=== PATIENT | female | born 1985 | race Caucasian/White ===

== ENCOUNTER 2017-01-30 08:49 | Emergency (ER) | payer BC ==
[2017-01-30 09:29] LABS: ABSOLUTE LYMPHOCYTES (AUTO) 0.5 10^3/uL (0.5-4.7); ABSOLUTE MONOCYTES (AUTO) 0.6 10^3/uL (0.1-1.4); ABSOLUTE NEUT (AUTO) 8.1 10^3/uL (1.7-8.2); BASOPHILS % (AUTO) 0.2 % (0-2); EOSINOPHILS % (AUTO) 0.3 % (0-6); HEMATOCRIT 38.9 % (36.0-47.0); HEMOGLOBIN 13.8 g/dL (12.0-15.5); HGB HCT DIFFERENCE 2.5; LYMPHOCYTES % (AUTO) 5.4 % (13-45); MEAN CORPUSCULAR HEMOGLOBIN 32.8 pg (27.0-33.4); MEAN CORPUSCULAR HGB CONC 35.4 g/dL (32.0-36.0); MEAN CORPUSCULAR VOLUME 93 fl (80-97); MONOCYTES % (AUTO) 6.7 % (3-13); RED CELL DISTRIBUTION WIDTH 13.4 % (11.5-14.0); SEGMENTED NEUTROPHILS % (AUTO) 87.4 % (42-78); WHITE BLOOD COUNT 9.2 10^3/uL (4.0-10.5)
[2017-01-30] MEDS ORDERED: NORMAL SALINE 1000 ML 1,000 ML IV ONE (09:35)
[2017-01-30 09:43] LABS: ALANINE AMINOTRANSFERASE 26 U/L (9-52); ALBUMIN 3.7 g/dL (3.5-5.0); ALKALINE PHOSPHATASE 141 U/L (38-126); ANION GAP 10 (5-19); ASPARTATE AMINO TRANSFERASE 31 U/L (14-36); BILIRUBIN,TOTAL 0.8 mg/dL (0.2-1.3); BLOOD UREA NITROGEN 11 mg/dL (7-20); CALCIUM 9.4 mg/dL (8.4-10.2); CARBON DIOXIDE 25 mmol/L (22-30); CHLORIDE 102 mmol/L (98-107); CREATININE RESULT 0.52 mg/dL (0.52-1.25); GLUCOSE 99 mg/dL (75-110); LIPASE 48.5 U/L (23-300); POTASSIUM 3.6 mmol/L (3.6-5.0); SODIUM 137.1 mmol/L (137-145)
--- NOTE | 2017-01-30 10:49 | ER Document Report ---
ED GI/ - General Chief Complaint: Nausea/Vomiting Stated Complaint: NAUSEA Notes: Patient is a 31-year-old female who presents emergency Department complaining of vomiting for the past 3 days. Patient states she is 30 weeks , went to see her ROBOTICS SYSTEMS ENGINEER Dr. Boyd yesterday. She was started on a [place] for intermittent fevers, nasal drainage and sinus pressure. Based on her evaluation at that time admits that if she continued to vomit that she should come to the emergency department for IV fluids. Patient states that she' s been throwing up for the past 3 days. She's been eating bland foods. States that she was standing up on Thursday, was able to keep things down yesterday. States that last evening and this morning she has had 5 episodes of emesis. Denies any hematemesis or hematochezia. She admits to occasional this bowel movements but denies any constipation. Denies any dizziness or lightheadedness any chest pain. Denies any urinary symptoms. Any vaginal bleeding. TRAVEL OUTSIDE OF THE [place] IN LAST 30 DAYS: No - HPI heart tones (bpm): 146 - Related Data Allergies/Adverse Reactions: cephalexin monohydrate [From Keflex] Allergy (Verified 01/30/17 08:58) GI upset Past Medical History - Social History Smoking Status: Never Smoker Chew tobacco use (# tins/day): No Frequency of alcohol use: None Drug Abuse: None Family History: Reviewed & Not Pertinent Patient has suicidal ideation: No Patient has homicidal ideation: No Renal/ Medical History: Denies: Hx Peritoneal Dialysis Past Surgical History: Reports: Hx Gynecologic Surgery - d&c times 2 for miscarriages. Denies: Hx Abdominal Surgery, Hx Appendectomy, Hx Cholecystectomy - Immunizations Immunizations up to date: Yes Hx Diphtheria, Pertussis, Tetanus Vaccination: Yes Review of Systems - Review of Systems Constitutional: See HPI EENT: See HPI Cardiovascular: No symptoms reported Respiratory: No symptoms reported Gastrointestinal: See HPI Genitourinary: No symptoms reported Female Genitourinary: No symptoms reported Musculoskeletal: No symptoms reported -: Yes All other systems reviewed and negative Physical Exam - Vital signs Vitals: Temp Pulse Resp BP Pulse Ox 98.7 F 111 H 16 120/68 98 01/30/17 08:56 01/30/17 08:56 01/30/17 08:56 01/30/17 08:56 01/30/17 08:56 - Notes Notes: PHYSICAL EXAM GENERAL: Alert, interacts well. HEAD: Normocephalic, atraumatic. EYES: Pupils equal, round, and reactive to light. Extraocular movements intact. ENT: Oral mucosa moist, tongue midline. NECK: Full range of motion. Supple. Trachea midline. LUNGS: Clear to auscultation bilaterally, no wheezes, rales, or rhonchi. No respiratory distress. HEART: Regular rate and rhythm. No murmurs, gallops, or rubs. ABDOMEN: Soft, with uterus palpable above the umbilicus, nontender. No guarding, rebound, or rigidity. Bowel sounds present in all 4 quadrants. heart tones with doppler 146bpm. EXTREMITIES: Moves all 4 extremities spontaneously. No edema, radial and dorsalis pedis pulses 2/4 bilaterally. No cyanosis. NEUROLOGICAL: Alert and oriented x4. Normal speech. PSYCH: Normal affect, normal mood. SKIN: Warm, dry, normal turgor. No rashes or lesions noted. Course - Re-evaluation Re-evalutation: 01/30/17 13:03 Patient is a 31-year-old female presents emergency Department complaining of dehydration. Patient had been referred over by her ROBOTICS SYSTEMS ENGINEER for IV fluids. Patient has not been throwing up since in the department. She is received 2 L of IV fluids. Her blood pressure now is 113/68 with a heart rate of 98. Patient states that she feels better. We'll discharge home with by mouth medications for nausea and vomiting and can follow-up with [facility]. - Vital Signs Vital signs: Temp Pulse Resp BP Pulse Ox 98.6 F 110 H 16 100/53 L 97 01/30/17 11:54 01/30/17 11:54 01/30/17 08:56 01/30/17 11:54 01/30/17 11:54 - Laboratory Result Diagrams: 01/30/17 09:22 01/30/17 09:22 Laboratory results interpreted by me: 01/30/17 01/30/17 01/30/17 09:22 09:22 11:05 Seg Neutrophils % 87.4 H Lymphocytes % 5.4 L Alkaline Phosphatase 141 H Beta HCG, Quant 03334.00 H Urine Protein 30 H Urine Ketones 20 H Urine Urobilinogen 4.0 H Urine Ascorbic Acid 40 H Discharge - Discharge Clinical Impression: Dehydration during Condition: Good Disposition: HOME, SELF-CARE Instructions: Intravenous (IV) Fluids ([facility]) Additional Instructions: Patients should be encouraged to eat as tolerated. Smaller meals may be less likely to induce vomiting than larger ones. Dafter, low residue foods may also be better tolerated than others. For healthy adults with acute viral gastroenteritis without signs of dehydration , sport drinks, diluted fruit juices, and other flavored soft drinks augmented with saltine crackers and broths or soups can meet the fluid and salt needs in almost all cases. Broiled starches/cereals (potatoes, noodles, rice, wheat, and oat) with some salt are excellent foods to consider. In addition, crackers, bananas, yogurt, soups, and boiled vegetables can also be consumed. BRAT diet (bananas, rice, applesauce, and toast) Referrals: CAN SWENSON MD [Primary Care Provider] - Follow up as needed (Please follow -up up as scheduled)
[2017-01-30 11:26] LABS: APPEARANCE,URINE SLIGHTLY-CLOUDY; BILIRUBIN,URINE NEGATIVE (NEGATIVE); GLUCOSE, URINE NEGATIVE (NEGATIVE); KETONES,URINE 20 mg/dL (NEGATIVE); LEUKOCYTE ESTERASE,URINE NEGATIVE (NEGATIVE); NITRITE,URINE NEGATIVE (NEGATIVE); PROTEIN,URINE 30 mg/dL (NEGATIVE); URINE SPECIFIC GRAVITY 1.026
[2017-01-30] MEDS ORDERED: NORMAL SALINE 1000 ML 1,000 ML IV PRN (12:07)
[2017-01-30 14:06] VITALS: BP 113/65
== END 2017-01-30 14:05 | disposition home or self-care (01) ==
LOC: ER 08:49
DX: O99.283 Endocrine, nutritional and metabolic diseases complicating pregnancy, third trimester (principal); E86.0 Dehydration; O21.2 Late vomiting of pregnancy; O99.513 Diseases of the respiratory system complicating pregnancy, third trimester; J34.89 Other specified disorders of nose and nasal sinuses; O26.893 Other specified pregnancy related conditions, third trimester; R50.9 Fever, unspecified; Z3A.30 30 weeks gestation of pregnancy; Z88.1 Allergy status to other antibiotic agents
CPT/HCPCS: 99283; 96360; 36415; 84702; 83690; 85025; 80053; 81001; J7030

== ENCOUNTER 2017-04-03 10:24 | Inpatient (IN) | payer BC ==
[2017-04-03 11:12] LABS: AMNISURE (ROM) NEGATIVE (NEGATIVE)
[2017-04-03 11:19] LABS: APPEARANCE,URINE SLIGHTLY-CLOUDY; BILIRUBIN,URINE NEGATIVE (NEGATIVE); GLUCOSE, URINE NEGATIVE (NEGATIVE); KETONES,URINE NEGATIVE (NEGATIVE); LEUKOCYTE ESTERASE,URINE SMALL (NEGATIVE); NITRITE,URINE NEGATIVE (NEGATIVE); PROTEIN,URINE NEGATIVE (NEGATIVE); URINE SPECIFIC GRAVITY 1.005; UROBILINOGEN,URINE NEGATIVE mg/dL (<2.0)
[2017-04-03 11:42] LABS: URINE BARBITURATES SCREEN NEGATIVE; URINE METHADONE SCREEN NEGATIVE; URINE OPIATES LOW NEGATIVE; URINE PHENCYCLIDINE SCREEN NEGATIVE
[2017-04-03] MEDS ORDERED: OXYTOCIN/NORMAL SALINE 1,000 ML IV PRN (12:00)
[2017-04-03 13:09] LABS: ABSOLUTE LYMPHOCYTES (AUTO) 1.3 10^3/uL (0.5-4.7); ABSOLUTE MONOCYTES (AUTO) 0.7 10^3/uL (0.1-1.4); ABSOLUTE NEUT (AUTO) 7.7 10^3/uL (1.7-8.2); BASOPHILS % (AUTO) 0.1 % (0-2); EOSINOPHILS % (AUTO) 0.2 % (0-6); HEMATOCRIT 35.2 % (36.0-47.0); HEMOGLOBIN 12.1 g/dL (12.0-15.5); HGB HCT DIFFERENCE 1.1; LYMPHOCYTES % (AUTO) 13.7 % (13-45); MEAN CORPUSCULAR HEMOGLOBIN 32.4 pg (27.0-33.4); MEAN CORPUSCULAR HGB CONC 34.3 g/dL (32.0-36.0); MEAN CORPUSCULAR VOLUME 95 fl (80-97); MONOCYTES % (AUTO) 7.4 % (3-13); RED BLOOD COUNT 3.72 10^6/uL (3.72-5.28); RED CELL DISTRIBUTION WIDTH 13.9 % (11.5-14.0); SEGMENTED NEUTROPHILS % (AUTO) 78.6 % (42-78); WHITE BLOOD COUNT 9.8 10^3/uL (4.0-10.5)
[2017-04-03] MEDS ORDERED: OXYTOCIN/NORMAL SALINE 20 UNIT/1,000 ML RTUINJ ONE ×2 (13:52→21:53)
[2017-04-03] MEDS ORDERED: RINGERS SOLUTION,LACTATED 1,000 ML IV PRN (20:51)
[2017-04-03] MEDS ORDERED: NALBUPHINE HCL INJ 10 MG/1 ML AMPULE INJ ONE (21:20)
[2017-04-03] MEDS ORDERED: NALBUPHINE HCL INJ 10 MG/1 ML AMPULE ONE (21:22)
[2017-04-03] MEDS ORDERED: LIDOCAINE 1% INJ-PF (10 MG/ML) 30 ML SDV ONE ×2 (21:53→23:09)
[2017-04-03] MEDS ORDERED: MISOPROSTOL 0.2 MG TABLET ONE (21:53)
[2017-04-03] MEDS ORDERED: DIPHENHYDRAMINE HCL 25 MG CAPSULE PO PRN (22:13)
[2017-04-03] MEDS ORDERED: ACETAMINOPHEN 650 MG SUPP.RECT PR PRN (22:13)
[2017-04-03] MEDS ORDERED: PROMETHAZINE HCL INJ 25 MG/1 ML VIAL IV PRN (22:13)
[2017-04-03] MEDS ORDERED: MAGNESIUM HYDROXIDE SUSP 30 ML UDCUP PO PRN (22:13)
[2017-04-03] MEDS ORDERED: BENZOCAINE/MENTHOL AEROSOL SPRAY 56 ML TOP PRN (22:13)
[2017-04-03] MEDS ORDERED: ACETAMINOPHEN WITH CODEINE #3 TABLET PO PRN ×2 (22:13)
[2017-04-03] MEDS ORDERED: DIBUCAINE 1% OINTMENT 28 GM TP PRN (22:13)
[2017-04-03] MEDS ORDERED: DIPH/PERTUSS(ACELL)/TETANUS VAC/PF 0.5 ML SYR (>=10YO) IM PRN (22:13)
[2017-04-03] MEDS ORDERED: PROMETHAZINE HCL 25 MG SUPP.RECT PR PRN (22:13)
[2017-04-03] MEDS ORDERED: ZOLPIDEM TARTRATE 5 MG TABLET PO PRN (22:13)
[2017-04-03] MEDS ORDERED: MEASLES,MUMPS&RUBELLA VACC/PF 0.5 ML VIAL SUBCUT PRN (22:13)
[2017-04-03] MEDS ORDERED: PSEUDOEPHEDRINE HCL 30 MG TABLET PO PRN (22:13)
[2017-04-03] MEDS ORDERED: NA PHOS,M-B/NA PHOS,DI-BA (ADULT) 133 ML ENEMA PR PRN (22:13)
[2017-04-03] MEDS ORDERED: GLYCERIN/WITCH HAZEL LEAF 1 EACH MED..PAD TP PRN (22:13)
[2017-04-03] MEDS ORDERED: PROMETHAZINE HCL 25 MG TABLET PO PRN (22:13)
[2017-04-03] MEDS ORDERED: IBUPROFEN 800 MG TABLET ONE (23:06)
[2017-04-03] MEDS: IBUPROFEN 800 MG TABLET PO SCH (23:06)
[2017-04-03] MEDS: OXYTOCIN/NORMAL SALINE 1,000 ML IV PRN ×2 (23:07→23:23)
--- NOTE | 2017-04-03 23:33 | Delivery Summary ---
Del Sum A-C Datetime Report Generated by CPN: 04/03/2017 23:33 DELIVERY PERSONNEL DELIVERY PERSONNEL: [phone] Delivery Doctor:: Benitez Tripathi MD Labor and Delivery Nurse:: Emeli Castro RNnail puller Nurse:: Maritza Kelley RN Nursery Nurse:: Nikki Ann RN MATERNAL INFORMATION Delivery Anesthesia: None Medications After Delivery: Pitocin Bolus-Please Comment; Pitocin Drip 20 Units/1000ml NSS Meds After Delivery Comment: pitocin 20 units/1000 ml NS Estimated Blood Loss (ml): 250 Maternal Complications: None Complication Details: Patient received Nubain 30 minutes prior to delivery LABOR SUMMARY EDC: 04/08/2017 00:00 No. Babies in Womb: 1 Attempted: No Labor Anesthesia: IV Sedation LABOR INFORMATION Reason for Induction: Oligohydramnios Onset of Labor: 04/03/2017 19:22 Complete Dilatation: 04/03/2017 21:46 Oxytocin: Induction Group B Beta Strep: neg Antibiotics # of Doses: 0 Antibiotics Time of Last Dose: N/A Steroids Given: None Reason Steroids Not Administered: Not Applicable MEMBRANES Membranes Rupture Method: Artificial Rupture of Membranes: 04/03/2017 19:22 Length of Rupture (hr): 2.52 Amniotic Fluid Color: Clear Amniotic Fluid Amount: Small Amniotic Fluid Odor: Normal STAGES OF LABOR Stage 1 hr: 2 Stage 1 min: 24 Stage 2 hr: 0 Stage 2 min: 7 Stage 3 hr: 0 Stage 3 min: 4 Total Time in Labor hr: 2 Total Time in Labor min: 35 VAGINAL DELIVERY Episiotomy: None Laceration Extension: Second Degree Laceration Type: Perineal Laceration Repair: Not Applicable Laceration Repair Note: small perineal lac repaired with 3-0 chromic suture Sponge Count Correct: Yes; Vaginal Sweep Performed Sharps Count Correct: Yes CSECTION DELIVERY Primary Indication: N/A Secondary Indication: N/A CSection Incidence: N/A Labor: N/A Elective: N/A CSection Incision: N/A BABY A INFORMATION Infant Delivery Date/Time: 04/03/2017 21:53 Method of Delivery: Vaginal Born in Route : No : N/A Forceps: N/A Vacuum Extraction: N/A Shoulder Dystocia : Yes SHOULDER DYSTOCIA BABY A 1st Intervention to Resolve: McRobert's Maneuver 2nd Intervention to Resolve: Suprapubic Pressure PRESENTATION/POSITION BABY A Presentation: Cephalic Cephalic Presentation: Vertex Vertex Position: Left Occipital Anterior Breech Presentation: N/A PLACENTA INFORMATION BABY A Placenta Delivery Time : 04/03/2017 21:57 Placenta Method of Delivery: Spontaneous Placenta Status: Delivered SCORES BABY A Heart Rate 1 min: >100 bpm Resp Effort 1 min: Good Cry Reflex Irritability 1 min: Cough or Sneeze or Pulls Away Muscle Tone 1 min: Active Motion Color 1 min: Body [place], Extremities Blue Resuscitation Effort 1 min: Tactile Stimulation SCORE 1 MIN: 9 Heart Rate 5 min: >100 bpm Resp Effort 5 min: Good Cry Reflex Irritability 5 min: Cough or Sneeze or Pulls Away Muscle Tone 5 min: Active Motion Color 5 min: Body [place], Extremities Blue SCORE 5 MIN: 9 INFORMATION BABY A Gestational Age at Delivery: 39.2 Gestational Status: Full Term- 39- 40.6 Weeks Outcome : Liveborn Infant Condition : Stable Infant Sex: Female IDENTIFICATION BABY A Verification Date/Time: 04/03/2017 22:00 ID Band Number: [id number] Mother's Name Verified: Yes RN Verifying Infant: B Talley, RN Additional Verifying Personnel: D Chris, US/COUNT TEAM CLERK WEIGHT/LENGTH BABY A Birthweight (gm): 3530 Weight (lb): 7 Infant Weight (oz): 13 Infant Length (in): 19.50 Infant Length (cm): 49.53 CORD INFORMATION BABY A No. Cord Vessels: 3 Nuchal Cord : N/A Cord Blood Taken: Yes-For Eval (Mom's Blood Type - or O+) Suction: Mouth ASSESSMENT BABY A Infant Complications: Shoulder Dystocia Complications- Other: 30 sec shoulder dystocia, shoulder was relieved by suprapubic pressure and sukhdeep manuever Physical Findings at Delivery: Within Normal Limits Infant Respirations: Appears Normal Skin to Skin: Yes Skin to Skin Time (min): 40 Cardiovascular Technician/ALS Called : No Infant Care By: CARLOS EDUARDO Ann Transferred To: Remains with Mother SIGNATURES Signature: with User ID: [email or web address] : I personally evaluated and examined the patient in conjunction with the MLP and agree with the assessment, treatment plan and disposition.
[2017-04-03] MEDS ORDERED: BENZOCAINE/MENTHOL AEROSOL SPRAY 56 ML ONE (23:48)
--- NOTE | 2017-04-04 02:12 | Admission Physical ---
Datetime Report Generated by CPN: 04/04/2017 02:11 CURRENT ADMISSION Chief Complaint: Other Chief Complaint Other: Decreasedd SHALONDA-3 Indication for Induction: Oligohydramnios Admit Plan: Admit to Unit; Initiate Labor Induction Protocol ALLERGIES Medication Allergies: Yes Medication Allergies: cephalexin monohydrate/GI upset (04/04/2017) Medication Allergies: cephalexin monohydrate/GI upset (01/30/2017) Latex: No Latex Allergies OBSTETRICAL HISTORY EDC: 04/08/2017 00:00 : 4 Para: 1 Term: 1 : 0 SAB: 2 IAB: 0 Ectopic: 0 Livin Cesareans: 0 VBACs: 0 Multiple Births: 0 Gestational Diabetes: No Rh Sensitization: No Incompetent Cervix: No LARISSA: No Infertility: No ART Treatment: No Uterine Anomaly: No IUGR: No Hx Previous C/S: No Macrosomia: No Hx Loss/Stillborn: No PIH: No Hx : No Placenta Previa/Abruption: No Depression/PP Depression: No PTL/PROM: No Post Hemorrhage: No Current Procedures: Ultrasound; NST Obstetrical History Comments: 12/2007 SAB G208/2008 SAB 07/2012 8lb8oz female, KIWI used G4- current SEE RECORDS Alcohol: No Marijuana : No Cocaine: No Other Illicit Drugs: No Cigarettes: Never Smoker. [id number] MEDICAL HISTORY Diabetes: No Blood Transfusion: No Pulmonary Disease (Asthma, TB): No Breast Disease: No Hypertension: No Monitoring Engineer Surgery: Yes Heart Disease: No Hosp/Surgery: Yes Autoimmune Disorder: No Anesthetic Complications: No Kidney Disease: No Abnormal Pap Smear: No Neuro/Epilepsy: No Psychiatric Disorders: No Other Medical Diseases: No Hepatitis/Liver Disease: No Significant Family History: No Varicosities/Phlebitis: No Trauma/Violence : No Thyroid Dysfunction: No Medical History Comments: prior , D_C x 2 INFECTIOUS HISTORY Gonorrhea: No Genital Herpes: No Chlamydia: No Tuberculosis: No Syphilis: No Hepatitis: No HIV/AIDS Exposure: No Rash or Viral Illness: No HPV: No PHYSICAL EXAM General: Normal HEENT: Normal Neurologic: Normal Thyroid: Deferred Heart: Normal Lungs: Normal Breast: Deferred Back: Normal Abdomen: Normal Genitourinary Exam: Normal Extremities: Normal DTRs: Normal Pelvic Type: Adequate Physical Exam Comments: Gravid uterus Vital Signs: Reviewed; Within Normal Limits VAGINAL EXAM Dilatation: 3 Effacement: 80 MEMBRANES Membranes: Intact FETUS A EGA: 39.2 Monitoring: External US FHR- Baseline: 145 Variability: Moderate 6-25bpm Accelerations: 15X15 Decelerations: None FHR Category: Category I Presentation: Vertex Admit Comment: SHALONDA 3 at [facility] Amnisure negative Proven for 8 lbs 8oz Failed 1hrgtt; passed 3hrgtt records available PLANS FOR LABOR AND DELIVERY Labor and Delivery: None Pain Management: None Feeding Preference: Both Benefit of Breast Feed Discussed: Yes Circumcision: N/A INFORMED CONSENT Assignment: Benitez Tripathi MD Signature: with User ID: Jay : with User ID: Jay : I personally evaluated and examined the patient in conjunction with the MLP and agree with the assessment, treatment plan and disposition.
[2017-04-04 09:12] LABS: HEMATOCRIT 30.4 % (36.0-47.0); HEMOGLOBIN 10.6 g/dL (12.0-15.5); HGB HCT DIFFERENCE 1.4; MEAN CORPUSCULAR HEMOGLOBIN 32.6 pg (27.0-33.4); MEAN CORPUSCULAR VOLUME 93 fl (80-97); RED BLOOD COUNT 3.27 10^6/uL (3.72-5.28); RED CELL DISTRIBUTION WIDTH 13.8 % (11.5-14.0); WHITE BLOOD COUNT 13.7 10^3/uL (4.0-10.5)
[2017-04-04] MEDS: DOCUSATE SODIUM 100 MG CAPSULE PO SCH ×2 (09:12→17:57)
[2017-04-04] MEDS: PRENATAL VITAMIN W-O CA NO5/FE FUMARATE/FA CAPSULE PO SCH (09:13)
[2017-04-04] MEDS: SENNOSIDES/DOCUSATE 8.6-50 MG 1 EACH TABLET PO SCH (09:13)
[2017-04-04] MEDS: FERROUS SULFATE 325 MG TABLET PO SCH ×2 (09:13→17:56)
[2017-04-04] MEDS: FAMOTIDINE 20 MG TABLET PO SCH ×2 (09:15→22:34)
--- NOTE | 2017-04-04 09:16 | PDOC PROGRESS REPORT ---
Subjective-OB Subjective: Post Delivery Day: 31 year old. Denies any needs at this time Physical Exam (OB) Vital Signs: Temp Pulse Resp BP Pulse Ox 98.1 F 88 18 116/69 99 04/04/17 08:00 04/04/17 08:00 04/04/17 08:00 04/04/17 08:00 04/04/17 08:00 Intake & Output 04/03/17 04/04/17 04/05/17 06:59 06:59 06:59 Weight 84.822 kg - Lochia Lochia Amount: Scant < 10 ml Lochia Color: Rubra/Red - Abdomen Description: Soft, Round Hernia Present: No Bowel Sounds: Normoactive Flatus Presence: Present Stool: No Fundal Description: Firm, Midline Fundal Height: u/u - u/2 Objective-Diagnostic Laboratory: 04/03/17 04/03/17 04/03/17 10:41 12:39 12:39 WBC 9.8 RBC 3.72 Hgb 12.1 Hct 35.2 L MCV 95 MCH 32.4 MCHC 34.3 RDW 13.9 Plt Count 104 L Seg Neutrophils % 78.6 H Lymphocytes % 13.7 Monocytes % 7.4 Eosinophils % 0.2 Basophils % 0.1 Absolute Neutrophils 7.7 Absolute Lymphocytes 1.3 Absolute Monocytes 0.7 Absolute Eosinophils 0.0 Absolute Basophils 0.0 Urine Color YELLOW Urine Appearance SLIGHTLY-CLOUDY Urine pH 8.0 Ur Specific [place] 1.005 Urine Protein NEGATIVE Urine Glucose (UA) NEGATIVE Urine Ketones NEGATIVE Urine Blood NEGATIVE Urine Nitrite NEGATIVE Ur Leukocyte Esterase SMALL H Urine WBC (Auto) 2 Urine RBC (Auto) 1 Blood Type O NEGATIVE Antibody Screen NEGATIVE
[2017-04-04] MEDS: IBUPROFEN 800 MG TABLET PO SCH ×2 (13:37→22:34)
[2017-04-05] MEDS: IBUPROFEN 800 MG TABLET PO SCH (06:31)
[2017-04-05 09:11] VITALS: BP 116/68
[2017-04-05] MEDS: SENNOSIDES/DOCUSATE 8.6-50 MG 1 EACH TABLET PO SCH (09:49)
[2017-04-05] MEDS: PRENATAL VITAMIN W-O CA NO5/FE FUMARATE/FA CAPSULE PO SCH (09:49)
[2017-04-05] MEDS: FERROUS SULFATE 325 MG TABLET PO SCH (09:49)
[2017-04-05] MEDS: DOCUSATE SODIUM 100 MG CAPSULE PO SCH (09:49)
[2017-04-05] MEDS: FAMOTIDINE 20 MG TABLET PO SCH (09:49)
--- NOTE | 2017-04-05 10:19 | PDOC PROGRESS REPORT ---
Subjective-OB Subjective: Post Delivery Day: 31 year old. Denies any needs at this time. Ready for discharge but will nest as baby is to stay in nursery. Physical Exam (OB) Vital Signs: Temp Pulse Resp BP Pulse Ox 97.7 F 89 16 116/69 100 04/05/17 08:52 04/05/17 08:52 04/05/17 08:52 04/05/17 08:52 04/05/17 08:52 Intake & Output 04/04/17 04/05/17 04/06/17 06:59 06:59 06:59 Weight 84.822 kg - PIH/Pre-Eclampsia Clonus: Negative - Lochia Lochia Amount: Scant < 10 ml Lochia Color: Rubra/Red - Abdomen Description: Tender, Soft Hernia Present: No Bowel Sounds: Normoactive Flatus Presence: Present Stool: No Fundal Description: Firm, Midline Fundal Height: u/u - u/2 Objective-Diagnostic Laboratory: 04/04/17 08:35
--- NOTE | 2017-04-05 10:29 | PDOC DISCHARGE SUMMARY ---
Final Diagnosis Discharge Date: 04/05/17 - Final Diagnosis (1) Delivery normal Is this a current diagnosis for this admission?: Yes (2) Oligohydramnios delivered Is this a current diagnosis for this admission?: Yes (3) Is this a current diagnosis for this admission?: Yes Discharge Data - Discharge Medication Home Medications: Pv W-O Vit A/Iron,Carbonyl/FA [Prenatabs Obn Tablet] 1 tab PO DAILY 07/12/12 Gestational Age: 39.2 wks Reason(s) for Admission: Other Admission Note: Oligohydramnios Procedures: Ultrasound Intrapartum Procedure(s): Spontaneous Vaginal Delivery Complication(s): Laceration-Perineal Laceration-Degree: 2nd - [place] Data Baby 1 Female at 1 minute: 9 at 5 minutes: 9 Weight: 3.544 kg Home with Mother: No Complications: Yes - Low oxygen saturation levels - Diagnosis Test Laboratory: Temp Pulse Resp BP Pulse Ox 97.7 F 89 16 116/69 100 04/05/17 08:52 04/05/17 08:52 04/05/17 08:52 04/05/17 08:52 04/05/17 08:52 04/03/17 04/03/17 04/04/17 10:41 12:39 08:35 RBC 3.72 3.27 L Hgb 12.1 10.6 L Hct 35.2 L 30.4 L Urine Opiates Screen NEGATIVE - Discharge information/Instructions Discharge Activity: Activity As Tolerated, Balance Activity w/Rest, Pelvic Rest , Slowly Increase Activity, No tub bath Discharge Diet: Regular Disposition: HOME, SELF-CARE Follow up with: [facility] in: 4, Weeks
== END 2017-04-05 12:46 | disposition home or self-care (01) | DRG 775 ==
LOC: LC 10:24 → LR 11:38 → 2S 04-04 01:40
PROVIDERS: ADMIT Obstetrics & Gynecology; ATTEND Obstetrics & Gynecology
PROC: 10E0XZZ Delivery of Products of Conception, External Approach (ICD-10-PCS; principal; 2017-04-03)
PROC: 0KQM0ZZ Repair Perineum Muscle, Open Approach (ICD-10-PCS; 2017-04-03)
DX: O41.03X0 Oligohydramnios, third trimester, not applicable or unspecified (principal); O36.0930 Maternal care for other rhesus isoimmunization, third trimester, not applicable or unspecified; O70.1 Second degree perineal laceration during delivery; O66.0 Obstructed labor due to shoulder dystocia; Z3A.39 39 weeks gestation of pregnancy; Z37.0 Single live birth
CPT/HCPCS: 36415; 59025; 80307; 81001; 84112; 85025; 85027; 86592; 86850; 86900; 86901; J2300; J2590; J3490

== ENCOUNTER 2018-12-16 09:22 | Outpatient (CLI) | payer BC ==
--- NOTE | 2018-12-16 10:12 | Non Stress Test Report ---
Non Stress Test Datetime Report Generated by CPN: 12/16/2018 10:12 DEMOGRAPHIC EGA NST: 34.5 INDICATION Indication for Study: Ordered by Provider MONITORING Monitor Explained: Monitor Explained; Test Explained; Patient Verbalized Understanding Time on Monitor: 12/16/2018 09:31 Time off Monitor: 12/16/2018 10:01 NST Duration: 30 NST INTERVENTIONS NST Interventions: PO Hydration Physician Notified NST: PDilia Campos, CNM BABY A: [id number] BABY A Movement : Present Contraction Frequency : 0 FHR Baseline : 130 Accelerations : 15X15 Decelerations : None Variability : Moderate 6-25bpm NST Review: Meets Criteria for Reactive NST NST Review and Verified By : CARLOS EDUARDO Merlos Results: Reactive NST REPORT Report Trigger: Send Report
== END 2018-12-16 10:06 | disposition home or self-care (01) ==
LOC: LC 09:22
PROVIDERS: ATTEND Obstetrics & Gynecology Gynecology
PROC: 4A1HXCZ Monitoring of Products of Conception, Cardiac Rate, External Approach (ICD-10-PCS; principal; 2018-12-16)
DX: O09.523 Supervision of elderly multigravida, third trimester (principal); Z3A.34 34 weeks gestation of pregnancy
CPT/HCPCS: 59025

== ENCOUNTER 2019-01-22 02:23 | Inpatient (IN) | payer BC ==
[2019-01-22] MEDS ORDERED: RINGERS SOLUTION,LACTATED 1,000 ML IV PRN (02:38)
[2019-01-22 02:52] LABS: APPEARANCE,URINE SLIGHTLY-CLOUDY; BILIRUBIN,URINE NEGATIVE (NEGATIVE); COLOR,URINE YELLOW; GLUCOSE, URINE NEGATIVE (NEGATIVE); KETONES,URINE NEGATIVE (NEGATIVE); LEUKOCYTE ESTERASE,URINE TRACE (NEGATIVE); NITRITE,URINE NEGATIVE (NEGATIVE); PROTEIN,URINE NEGATIVE (NEGATIVE); URINE SPECIFIC GRAVITY 1.009; UROBILINOGEN,URINE NEGATIVE mg/dL (<2.0)
[2019-01-22 03:18] LABS: URINE AMPHETAMINES SCREEN NEGATIVE; URINE BARBITURATES SCREEN NEGATIVE; URINE BENZODIAZEPINES SCREEN NEGATIVE; URINE COCAINE SCREEN NEGATIVE; URINE MARIJUANA (THC) SCREEN NEGATIVE; URINE METHADONE SCREEN NEGATIVE; URINE PHENCYCLIDINE SCREEN NEGATIVE
[2019-01-22] MEDS ORDERED: LIDOCAINE 1% INJ-PF (10 MG/ML) 30 ML SDV ONE (05:39)
[2019-01-22] MEDS ORDERED: OXYTOCIN 10 UNIT/ML VIAL ONE (05:39)
[2019-01-22] MEDS ORDERED: OXYTOCIN/NORMAL SALINE 20 UNIT/1,000 ML RTUINJ ONE (05:39)
[2019-01-22] MEDS ORDERED: MISOPROSTOL 0.2 MG TABLET ONE (05:39)
[2019-01-22 06:38] LABS: ABSOLUTE LYMPHOCYTES (AUTO) 1.2 10^3/uL (0.5-4.7); ABSOLUTE MONOCYTES (AUTO) 0.7 10^3/uL (0.1-1.4); ABSOLUTE NEUT (AUTO) 13.2 10^3/uL (1.7-8.2); BASOPHILS % (AUTO) 0.1 % (0-2); EOSINOPHILS % (AUTO) 0.2 % (0-6); HEMOGLOBIN 13.1 g/dL (12.0-15.5); LYMPHOCYTES % (AUTO) 7.8 % (13-45); MEAN CORPUSCULAR HEMOGLOBIN 32.2 pg (27.0-33.4); MEAN CORPUSCULAR HGB CONC 35.3 g/dL (32.0-36.0); MEAN CORPUSCULAR VOLUME 91 fl (80-97); MONOCYTES % (AUTO) 4.9 % (3-13); PLATELET COUNT 134 10^3/uL (150-450); RED BLOOD COUNT 4.06 10^6/uL (3.72-5.28); RED CELL DISTRIBUTION WIDTH 14.2 % (11.5-14.0); TOTAL CELLS COUNTED % (AUTO) 100 %; WHITE BLOOD COUNT 15.2 10^3/uL (4.0-10.5)
--- NOTE | 2019-01-22 07:21 | Admission Physical ---
Datetime Report Generated by CPN: 01/22/2019 07:21 CURRENT ADMISSION Chief Complaint: Uterine Contractions Indication for Induction: Not Applicable Admit Impression : Term, Intrauterine ; Active Labor; Intact Membranes Admit Plan: Admit to Unit; Initiate Labor Protocol ALLERGIES Medication Allergies: Yes Medication Allergies: cephalexin monohydrate/GI upset (04/04/2017) Latex: Latex Allergies Food Allergies: N/A Environmental Allergies: N/A OBSTETRICAL HISTORY EDC: 01/22/2019 00:00 : 5 Para: 2 Term: 2 : 0 SAB: 2 IAB: 0 Ectopic: 0 Livin Cesareans: 0 VBACs: 0 Multiple Births: 0 Gestational Diabetes: No Rh Sensitization: No Incompetent Cervix: No LARISSA: No Infertility: No ART Treatment: No Uterine Anomaly: No IUGR: No Hx Previous C/S: No Macrosomia: No Hx Loss/Stillborn: No PIH: No Hx : No Placenta Previa/Abruption: No Depression/PP Depression: No PTL/PROM: No Post Hemorrhage: No Current Procedures: Ultrasound; NST Obstetrical History Comments: G1 - 2008, SAB, 9 weeks G2 - 2008, SAB, 7 weeks G3 - 2012, , 40.1 weeks G4 - 2017, , 39.2 weeks G5 - Current SEE RECORDS Alcohol: No Marijuana : No Cocaine: No Other Illicit Drugs: No Cigarettes: Never Smoker. [id number] MEDICAL HISTORY Diabetes: No Blood Transfusion: No Pulmonary Disease (Asthma, TB): No Breast Disease: No Hypertension: No Gas Technician Surgery: No Heart Disease: No Hosp/Surgery: Yes Autoimmune Disorder: No Anesthetic Complications: No Kidney Disease: No Abnormal Pap Smear: No Neuro/Epilepsy: No Psychiatric Disorders: No Other Medical Diseases: No Hepatitis/Liver Disease: No Significant Family History: No Varicosities/Phlebitis: No Trauma/Violence : No Thyroid Dysfunction: No Medical History Comments: Migraines, D_C x2 in 2008 INFECTIOUS HISTORY Gonorrhea: No Genital Herpes: No Chlamydia: No Tuberculosis: No Syphilis: No Hepatitis: No HIV/AIDS Exposure: No Rash or Viral Illness: No HPV: No PHYSICAL EXAM General: Normal HEENT: Normal Neurologic: Normal Thyroid: Normal Heart: Normal Lungs: Normal Breast: Normal Back: Normal Abdomen: Normal Genitourinary Exam: Normal Extremities: Normal DTRs: Normal Pelvic Type: Adequate Vital Signs: Reviewed; Within Normal Limits VAGINAL EXAM Dilatation: 7-8 Effacement: 80 Station: -2 Contraction Comments: q 2-3 MEMBRANES Membranes: Intact FETUS A EGA: 40.0 Monitoring: External US FHR- Baseline: 120-130s Variability: Moderate 6-25bpm Accelerations: 15X15 Decelerations: None FHR Category: Category I Admit Comment: Pt was initially 3 cm and walked for 2 hrs and progressed to 5 cm. GBS Negative; AROM @ 0715. PLANS FOR LABOR AND DELIVERY Labor and Delivery: None Pain Management: None Feeding Preference: Both Benefit of Breast Feed Discussed: Yes INFORMED CONSENT Signature: with User ID: [email or web address]
[2019-01-22] MEDS ORDERED: FENTANYL CITRATE INJ/PF 100 MCG/2 ML AMPUL ONE (08:36)
[2019-01-22] MEDS ORDERED: NALBUPHINE HCL INJ 10 MG/1 ML AMPULE ONE (10:29)
[2019-01-22] MEDS ORDERED: ACETAMINOPHEN WITH CODEINE #3 TABLET PO PRN ×2 (11:51)
[2019-01-22] MEDS ORDERED: DIPH/PERTUSS(ACELL)/TETANUS VAC/PF 0.5 ML SYR (>=10YO) IM PRN (11:51)
[2019-01-22] MEDS ORDERED: ZOLPIDEM TARTRATE 5 MG TABLET PO PRN (11:51)
[2019-01-22] MEDS ORDERED: BENZOCAINE/MENTHOL AEROSOL SPRAY 56 ML TOP PRN (11:51)
[2019-01-22] MEDS ORDERED: DIBUCAINE 1% OINTMENT 56 GM TP PRN (11:51)
[2019-01-22] MEDS ORDERED: OXYTOCIN/NORMAL SALINE 1,000 ML IV PRN (11:51)
[2019-01-22] MEDS ORDERED: IBUPROFEN 800 MG TABLET ONE (13:35)
--- NOTE | 2019-01-22 14:44 | Delivery Summary ---
Del Sum A-C Datetime Report Generated by CPN: 01/22/2019 14:44 DELIVERY PERSONNEL DELIVERY PERSONNEL: [phone] Delivery Doctor:: Yany Funes MD Labor and Delivery Nurse:: Roberta Momin RNnon clinical advisor Nurse:: NITISH Rousseau Functional Tester/BREWING DIRECTOR: Becca Mendosaaneda, ST MATERNAL INFORMATION Delivery Anesthesia: None Medications After Delivery: Pitocin Drip 20 Units/1000ml NSS Estimated Blood Loss (ml): 400 Maternal Complications: None Provider Comments: of a viable male @ 1125 with an BLADIMIR presentation; APGARS 8, 9; 2nd degree midline vaginal lac LABOR SUMMARY EDC: 01/22/2019 00:00 No. Babies in Womb: 1 Attempted: Yes Labor Anesthesia: None LABOR INFORMATION Reason for Induction: Not Applicable Onset of Labor: 01/22/2019 01:00 Complete Dilatation: 01/22/2019 11:21 Oxytocin: N/A Group B Beta Strep: Negative Antibiotics # of Doses: 0 Steroids Given: None Reason Steroids Not Administered: Not Applicable MEMBRANES Membranes Rupture Method: Artificial Rupture of Membranes: 01/22/2019 07:14 Length of Rupture (hr): 4.18 Amniotic Fluid Color: Clear Amniotic Fluid Amount: Small Amniotic Fluid Odor: Normal STAGES OF LABOR Stage 1 hr: 10 Stage 1 min: 21 Stage 2 hr: 0 Stage 2 min: 4 Stage 3 hr: 0 Stage 3 min: 5 Total Time in Labor hr: 10 Total Time in Labor min: 30 VAGINAL DELIVERY Episiotomy: None Laceration #1: Vaginal Laceration Extension #1: Second Degree Laceration Repair: Yes Laceration Repair Note: Repaired with 2-0 vicryl Sponge Count Correct: Yes Sharps Count Correct: Yes CSECTION DELIVERY Primary Indication: N/A Secondary Indication: N/A CSection Incidence: N/A Labor: N/A Elective: N/A CSection Incision: N/A BABY A INFORMATION Delivery Date/Time: 01/22/2019 11:25 Method of Delivery: Vaginal Born in Route : No : N/A Forceps: N/A Vacuum Extraction: N/A Shoulder Dystocia : No PRESENTATION/POSITION BABY A Presentation: Cephalic Cephalic Presentation: Vertex Vertex Position: Left Occipital Anterior Breech Presentation: N/A PLACENTA INFORMATION BABY A Placenta Delivery Time : 01/22/2019 11:30 Placenta Method of Delivery: Spontaneous Placenta Status: Delivered SCORES BABY A Heart Rate 1 min: >100 bpm Resp Effort 1 min: Good Cry Reflex Irritability 1 min: Cough or Sneeze or Pulls Away Muscle Tone 1 min: Some Flexion of Extremities Color 1 min: Body [place], Extremities Blue Resuscitation Effort 1 min: Tactile Stimulation SCORE 1 MIN: 8 Heart Rate 5 min: >100 bpm Resp Effort 5 min: Good Cry Reflex Irritability 5 min: Cough or Sneeze or Pulls Away Muscle Tone 5 min: Active Motion Color 5 min: Completely [place] Resuscitation Effort 5 min: Tactile Stimulation SCORE 5 MIN: 10 INFORMATION BABY A Gestational Age at Delivery: 40.0 Gestational Status: Full Term- 39- 40.6 Weeks Outcome : Liveborn Condition : Stable Sex: Male IDENTIFICATION BABY A Verification Date/Time: 01/22/2019 11:45 ID Band Number: [id number] Mother's Name Verified: Yes Infant RN Verifying Infant: Toni Cruz, RN and D. Richagilmerletitiaarely, RN WEIGHT/LENGTH BABY A Infant Birthweight (gm): 3977 Infant Weight (lb): 8 Infant Weight (oz): 12 Infant Length (in): 21.50 Infant Length (cm): 54.61 CORD INFORMATION BABY A No. Cord Vessels: 3 Nuchal Cord : Around Neck x1, Loose Cord Blood Taken: Yes-For Storage (Mom's Blood type +) Infant Suction: Mouth ASSESSMENT BABY A Infant Complications: None Physical Findings at Delivery: Within Normal Limits Infant Respirations: Appears Normal Skin to Skin: Yes Piano Stringer/ALS Called : No Care By: Gee Sanchez RN Transferred To: Remains with Mother BABY B INFORMATION : N/A SIGNATURES Signature: with User ID: [email or web address]
[2019-01-22] MEDS: IBUPROFEN 800 MG TABLET PO SCH ×2 (16:34→21:14)
[2019-01-22] MEDS: DOCUSATE SODIUM 100 MG CAPSULE PO SCH (18:57)
[2019-01-22] MEDS: FERROUS SULFATE 325 MG TABLET PO SCH (18:57)
[2019-01-23] MEDS: IBUPROFEN 800 MG TABLET PO SCH ×3 (06:45→21:12)
[2019-01-23 08:30] LABS: HEMATOCRIT 29.8 % (36.0-47.0); HEMOGLOBIN 10.6 g/dL (12.0-15.5); MEAN CORPUSCULAR HEMOGLOBIN 32.6 pg (27.0-33.4); MEAN CORPUSCULAR HGB CONC 35.6 g/dL (32.0-36.0); MEAN CORPUSCULAR VOLUME 92 fl (80-97); PLATELET COUNT 124 10^3/uL (150-450); RED BLOOD COUNT 3.25 10^6/uL (3.72-5.28); RED CELL DISTRIBUTION WIDTH 14.4 % (11.5-14.0); WHITE BLOOD COUNT 11.9 10^3/uL (4.0-10.5)
[2019-01-23] MEDS: DOCUSATE SODIUM 100 MG CAPSULE PO SCH ×2 (10:06→18:52)
[2019-01-23] MEDS: SENNOSIDES/DOCUSATE 8.6-50 MG 1 EACH TABLET PO SCH (10:06)
[2019-01-23] MEDS: FERROUS SULFATE 325 MG TABLET PO SCH ×2 (10:06→18:52)
[2019-01-23] MEDS: PRENATAL VITAMIN W DHA CAPSULE PO SCH (10:06)
--- NOTE | 2019-01-23 10:27 | PDOC PROGRESS REPORT ---
Subjective-OB Progress Note for:: 01/23/19 Subjective: doing well, with baby Physical Exam (OB) Vital Signs: Temp Pulse Resp BP Pulse Ox 97.6 F 98 18 119/75 98 01/23/19 08:10 01/23/19 08:10 01/23/19 08:10 01/23/19 08:10 01/23/19 08:10 Intake & Output 01/22/19 01/23/19 01/24/19 05:59 06:59 06:59 Weight - PIH/Pre-Eclampsia Clonus: Negative Headache: Absent Epigastric Pain: No Visual Changes: No - Lochia Lochia Amount: Scant < 10 ml Lochia Color: Rubra/Red - Abdomen Description: Soft Hernia Present: No Fundal Description: Firm, Midline Fundal Height: u/u - u/2 Objective-Diagnostic Laboratory: 01/23/19 07:49 01/23/19 07:49 WBC 11.9 H RBC 3.25 L Hgb 10.6 L D Hct 29.8 L MCV 92 MCH 32.6 MCHC 35.6 RDW 14.4 H Plt Count 124 L Assessment and Plan(PN) - Assessment and Plan (1) Delivery normal Is this a current diagnosis for this admission?: Yes (2) Oligohydramnios delivered Is this a current diagnosis for this admission?: Yes - Time Spent with Patient Time with patient: Less than 15 minutes - Disposition Within: within 24 hours
[2019-01-24] MEDS: IBUPROFEN 800 MG TABLET PO SCH ×2 (05:23→14:19)
--- NOTE | 2019-01-24 10:21 | PDOC DISCHARGE SUMMARY ---
Final Diagnosis Discharge Date: 01/24/19 - Final Diagnosis (1) Delivery normal Is this a current diagnosis for this admission?: Yes (2) Oligohydramnios delivered Is this a current diagnosis for this admission?: Yes Discharge Data - Discharge Medication Home Medications: Pv W-O Vit A/Iron,Carbonyl/FA [Prenatabs Obn Tablet] 1 tab PO DAILY 07/12/12 Reason(s) for Admission: Onset of Labor Procedures: NST Intrapartum Procedure(s): Spontaneous Vaginal Delivery Complication(s): Laceration-Perineal Laceration-Degree: 2nd - Diagnosis Test Laboratory: Temp Pulse Resp BP Pulse Ox 97.6 F 98 18 119/75 98 01/23/19 08:10 01/23/19 08:10 01/23/19 08:10 01/23/19 08:10 01/23/19 08:10 01/22/19 01/22/19 01/23/19 02:35 06:14 07:49 RBC 4.06 3.25 L Hgb 13.1 10.6 L D Hct 37.0 29.8 L Urine Opiates Screen NEGATIVE - Discharge information/Instructions Discharge Activity: Pelvic Rest Discharge Diet: Regular Disposition: HOME, SELF-CARE Follow up with: [facility] in: 4, Weeks
[2019-01-24] MEDS: SENNOSIDES/DOCUSATE 8.6-50 MG 1 EACH TABLET PO SCH (11:11)
[2019-01-24] MEDS: FERROUS SULFATE 325 MG TABLET PO SCH (11:11)
[2019-01-24] MEDS: PRENATAL VITAMIN W DHA CAPSULE PO SCH (11:11)
[2019-01-24] MEDS: DOCUSATE SODIUM 100 MG CAPSULE PO SCH (11:12)
[2019-01-24 13:53] VITALS: BP 116/76
== END 2019-01-24 14:40 | disposition home or self-care (01) | DRG 806 ==
LOC: LC 02:23 → LR 05:30 → 2S 14:30
PROVIDERS: ADMIT Obstetrics & Gynecology; ATTEND Obstetrics & Gynecology
PROC: 10E0XZZ Delivery of Products of Conception, External Approach (ICD-10-PCS; principal; 2019-01-22)
PROC: 0KQM0ZZ Repair Perineum Muscle, Open Approach (ICD-10-PCS; 2019-01-22)
DX: O36.0930 Maternal care for other rhesus isoimmunization, third trimester, not applicable or unspecified (principal); O41.03X0 Oligohydramnios, third trimester, not applicable or unspecified; Z37.0 Single live birth; O69.81X0 Labor and delivery complicated by cord around neck, without compression, not applicable or unspecified; O70.1 Second degree perineal laceration during delivery; Z3A.40 40 weeks gestation of pregnancy
CPT/HCPCS: 36415; 80307; 81005; 85025; 85027; 86592; 86850; 86900; 86901; J2300; J2590; J3010; J3490

== ENCOUNTER → 2020-05-14 | Outpatient (CLI) | payer BC | LOC: LAB 16:04 | DX: Z53.9 Procedure and treatment not carried out, unspecified reason (principal) | CPT/HCPCS: 36415; 86701; 86803; 86804 ==

== ENCOUNTER → 2020-09-21 | Outpatient (CLI) | payer BC ==
[2020-09-21 13:18] LABS: ABSOLUTE EOSINOPHILS # (AUTO) 0.1 10^3/uL (0.0-0.6); ABSOLUTE LYMPHOCYTES (AUTO) 1.8 10^3/uL (0.5-4.7); ABSOLUTE MONOCYTES (AUTO) 0.5 10^3/uL (0.1-1.4); ABSOLUTE NEUT (AUTO) 4.2 10^3/uL (1.7-8.2); BASOPHILS % (AUTO) 0.2 % (0-2); EOSINOPHILS % (AUTO) 1.2 % (0-6); HEMATOCRIT 39.3 % (36.0-47.0); HEMOGLOBIN 14.3 g/dL (12.0-15.5); LYMPHOCYTES % (AUTO) 27.2 % (13-45); MEAN CORPUSCULAR HEMOGLOBIN 31.1 pg (27.0-33.4); MEAN CORPUSCULAR HGB CONC 36.4 g/dL (32.0-36.0); MEAN CORPUSCULAR VOLUME 86 fl (80-97); PLATELET COUNT 172 10^3/uL (150-450); RED BLOOD COUNT 4.59 10^6/uL (3.72-5.28); RED CELL DISTRIBUTION WIDTH 12.9 % (11.5-14.0); SEGMENTED NEUTROPHILS % (AUTO) 63.4 % (42-78); TOTAL CELLS COUNTED % (AUTO) 100 %; WHITE BLOOD COUNT 6.7 10^3/uL (4.0-10.5)
[2020-09-21 13:40] LABS: ANION GAP 9 (5-19); BLOOD UREA NITROGEN 17 mg/dL (7-20); CALCIUM 9.9 mg/dL (8.4-10.2); CARBON DIOXIDE 25 mmol/L (22-30); CHLORIDE 103 mmol/L (98-107); GLUCOSE 87 mg/dL (75-110); POTASSIUM 4.1 mmol/L (3.6-5.0)
== END ==
LOC: OD 12:07
PROVIDERS: ATTEND Specialist
DX: R53.83 Other fatigue (principal)
CPT/HCPCS: 36415; 80048; 83036; 84443; 85025